=== PATIENT | female | born 1990 | race Caucasian/White ===

== ENCOUNTER 2024-06-25 21:20 | Emergency (ER) | payer BC, SELFPAY ==
[2024-06-25 21:25] VITALS: BP 173/113; PULSE 98; RESP 18; TEMP 36.8; O2SAT 96; BMI 48.1
--- NOTE | 2024-06-25 21:25 | ED_ITS ---
HPI - Abdominal Pain General Date Seen: 06/25/24 Chief Complaint: Abdominal Pain Stated Complaint: RUQ pain Time Seen by Provider: 06/25/24 21:25 History of Present Illness HPI narrative: 34-year-old female with a past medical history including hypertension, elevated BMI, history of V-tach with ablation in 2021, history of eustachian tube dysfunction, anxiety, appendectomy. She also reports a history of a ?enlarged liver? that was noted by her doctors Arash some years ago. It does not sound like it was a serious condition. She is not sure about more detail. I reviewed her old [facility] records. And annual checkup in November 2021 she had mention feeling something enlarged and her right upper quadrant. She went to clinic in December with concern for a bulge in the epigastric reason, possibly an epigastric hernia. A CT scan was ordered by Dr. Huerta, surgery She then had a CT scan which apparently showed mild hepatomegaly. Apparently did not show an epigastric hernia. I am not able to [facility] the [facility] She had follow-up visits in January. CT scan of her abdomen/pelvis on 02/23/2022 FINDINGS: Liver: Liver measures 19.5 cm in length. No masses. No intrahepatic biliary dilatation. ? Gallbladder: No stones or sludge. Normal wall thickness. No pericholecystic fluid. ? Common bile duct: 3 mm. ? Pancreas: Normal in size and appearance. ? Right kidney: Unremarkable. No hydronephrosis. ? Vasculature: Proximal abdominal aorta and IVC are normal in caliber. ? IMPRESSION: No gallstones or evidence of acute abnormality. gallbladder ultrasound on 02/23/2022. IMPRESSION: No gallstones or evidence of acute abnormality. Recent LFTs have been normal in the [facility] system. On 07/27/2023 she had normal labs with a ALT of 14, AST of 19, bilirubin 0.2, albumin low at 3.7, alk-phos normal at 62 Her primary care's to the [facility]. Her [facility] medication list currently includes ; furosemide, propranolol, olmesartan, Pulmicort, hydroxyzine, control pills She has been experiencing some pain and a sensation of fullness in her right upper quadrant of her abdomen ever since late Wednesday evening. She notes that Wednesday evening she when out to [employer] to see a calmly show. She ate some pizza for dinner. No pain with eating. Since the pain began on Wednesday it has been continuous. It has been getting steadily worse over time. It is not really triggered by eating or better with fasting. The pain is located in the mostly in the right upper quadrant but also a little bit into the epigastrium. It does not radiate through to the back. No fever. No vomiting. Bowel movements have been normal. No black or bloody or whitish stools. Urination has been normal. Her last menstrual cycle just ended yesterday. She is not having any pelvic pain. No flank pain. She is concerned because she is worried she might have fluid or something bad leaking from her liver. She came here to the [facility] with her family. Related Data Home Medications ?Medication ?Instructions ?Recorded ?Confirmed furosemide 20 mg tablet 20 mg PO BID 06/25/24 06/25/24 hydroxyzine HCl 25 mg tablet mg PO 06/25/24 norgestimate 0.25 mg-ethinyl 1 tab PO DAILY 06/25/24 06/25/24 estradiol 35 mcg tablet (Estarylla) propranolol 60 mg capsule,24 60 mg PO DAILY 06/25/24 06/25/24 hr,extended release Previous Rx's ?Medication ?Instructions ?Recorded omeprazole 40 mg capsule,delayed 40 mg PO DAILY #30 caps 06/25/24 release Allergies Allergy/AdvReac Type Severity Reaction Status Date / Time No Known Drug Allergies Allergy Verified 06/25/24 21:29 [facility] Medical History (Updated 06/25/24 @ 23:25 by Buddy Kang MD) Morbid obesity ?E66.01 - Morbid (severe) obesity due to excess calories (ICD-10) ETD (eustachian tube dysfunction) ?H69.90 - Unspecified Eustachian tube disorder, unspecified ear (ICD-10) HTN (hypertension) ?I10 - Essential (primary) hypertension (ICD-10) Surgical History (Updated 06/25/24 @ 22:09 by Marin Headley RN) History of myringotomy ?Z98.890 - Other specified postprocedural states (ICD-10) History of nasal septoplasty ?Z98.890 - Other specified postprocedural states (ICD-10) History of wisdom tooth extraction ?K08.409 - Partial loss of teeth, unspecified cause, unspecified class (ICD- 10) History of tympanoplasty ?Z98.890 - Other specified postprocedural states (ICD-10) History of laparoscopic appendectomy ?Z90.49 - Acquired absence of other specified parts of digestive tract (ICD- 10) History of colposcopy ?Z98.890 - Other specified postprocedural states (ICD-10) History of cardiac radiofrequency ablation ?Z98.890 - Other specified postprocedural states (ICD-10) History of bilateral breast reduction surgery ?Z98.890 - Other specified postprocedural states (ICD-10) Social History Smoking Status: Never smoker Second hand tobacco smoke exposure: No How often do you have a drink containing alcohol: never AUDIT-C Alcohol total score: 0 Non-prescribed substance use: denies use Exam Narrative: Exam Narrative: Constitutional: Appears well-developed and well-nourished. Alert. Conversant. Non toxic. HENT: Head: Atraumatic. Nose: Nose normal. Mouth/Throat: Oral mucosa is clear and moist. no trismus. Eyes: Conjunctivae normal. EOM normal. Pupils equal, round, and reactive to light. No scleral icterus. Neck: Normal range of motion. Neck supple. No tracheal deviation present. Cardiovascular: Normal rate, regular rhythm. No gallop. No friction rub. No murmur heard. Pulmonary/Chest: Effort normal. No stridor. No respiratory distress. No wheezes. No rales. No rhonchi . No ribcage tenderness. Abdominal: Soft. Bowel sounds normal. No distension. No mass. Right upper quadrant tenderness. Positive Justice sign. No rebound. No guarding. No right lower quadrant or left-sided tenderness. No CVA tenderness. Musculoskeletal: RUE: Normal range of motion. No tenderness. No deformity LUE: Normal range of motion. No tenderness. No deformity RLE: Normal range of motion. No edema. No tenderness. No deformity LLE: Normal range of motion. No edema. No tenderness. No deformity Neurological: Alert and oriented to person, place, and time. Normal strength. CN II-VII intact. No sensory deficit. GCS eye subscore is 4. GCS verbal subscore is 5. GCS motor subscore is 6. Normal coordination Skin: Skin is warm and dry. No rash noted. No pallor. Normal capillary refill. Psychiatric: Very polite. Initially conversant but bowel were talking she becomes tearful. She is very worried that there is something leaking or fluid around her liver. Her family notes that she searched the Internet before coming in. This triggered her anxiety. She does deal with daily anxiety and is on medications including hydroxyzine for that but she did not take her hydroxyzine today. Const: Vital Signs, click to edit/add: Vital Signs - 24 hr 06/25/24 21:25 06/25/24 21:45 Temperature 98.2 F 98.2 F Pulse Rate [Pulse Oximeter] 98 Respiratory Rate 18 Blood Pressure [Ri ght Upper Arm] 173/113 H Pulse Oximetry 96 Oxygen Delivery Me thod Room Air Course Vital Signs Vital signs: Initial Vital Signs Temperature 98.2 F 06/25/24 21:25 Temperature Source Temporal Artery Scan 06/25/24 21:25 Pulse Rate 98 06/25/24 21:25 Respiratory Rate 18 06/25/24 21:25 Blood Pressure 173/113 H 06/25/24 21:25 Blood Pressure Mean 133 H 06/25/24 21:25 Blood Pressure Position Sitting 06/25/24 21:25 Pulse Oximetry 96 06/25/24 21:25 Oxygen Delivery Method Room Air 06/25/24 21:25 Vital Signs Temperature 98.2 F 06/25/24 21:25 Pulse Rate 98 06/25/24 21:25 Respiratory Rate 18 06/25/24 21:25 Blood Pressure 173/113 H 06/25/24 21:25 Pulse Oximetry 96 06/25/24 21:25 Oxygen Delivery Method Room Air 06/25/24 21:25 Temperature 98.2 F 06/25/24 23:34 Pulse Rate 85 06/25/24 23:34 Respiratory Rate 18 06/25/24 23:34 Blood Pressure 155/85 H 06/25/24 23:34 Pulse Oximetry 96 06/25/24 23:34 Oxygen Delivery Method Room Air 06/25/24 23:34 Medications Administered Medications: Discontinued Medications Generic Name Dose Route Start Last Admin Trade Name Freq PRN Reason Stop Dose Admin Ketorolac Tromethamine 15 mg 06/25/24 21:38 06/25/24 21:45 Ketorolac 15 Mg/Ml Inj IVP 06/25/24 21:39 15 mg ONCE ONE Administration MDM - Abdominal Pain MDM Narrative Medical decision making narrative: Presented to the Emergency Department with a discomfort/bloated feeling affecting the right upper quadrant and a little bit of the right-side of her epigastrium. The differential diagnosis of abdominal pain includes: Cholecystitis, biliary colic, choledocholithiasis, Bowel Obstruction, Ulcer, Ischemia, Cholecystitis, Diverticulitis, Pancreatitis, UTI, kidney stone, Enteritis/Colitis, amongst many other etiologies. She is status post appendectomy. Laboratory testing does not reveal a cause for the patient's pain. Gallbladder ultrasound is noted to be normal, save for mild hepatomegaly which is previously known. The exact etiology of the abdominal pain is not clear at this time. No life threatening cause or need for emergent surgery or hospital admission is detected today. The patient was advised that if symptoms do not completely resolve within another 24 hours re-evaluation with primary care or return to the ED is indicated. We will start her on a PPI in case this might be stomach gas related or gastritis. Patient understands that that is not definitive diagnosis and she needs to monitor carefully. The patient also understands that if they worsen, they should return to the ER right away. I discussed the uncertainty about the diagnosis and answered the patient's questions. Abdominal pain return precautions discussed. Lab Data Labs: Lab Results 06/25/24 06/25/24 Range/Units 21:39 21:48 WBC 11.94 H (4.50-11.00) K/uL RBC 4.71 (4.00-5.20) m/uL Hgb 14.4 (12.0-16.0) gm/dL Hct 42.1 (33.0-51.0) % MCV 89 (80-100) fL MCH 31 (26-34) pg MCHC 34 (32-36) gm/dL RDW Coeff of Umer 13.0 (11.5-15.5) % Plt Count 237 (140-440) K/uL Neut % (Auto) 65.5 (42.0-72.0) % Lymph % (Auto) 22.5 (20-44) % Kern % (Auto) 9.0 (0.0-11.0) % Eos % (Auto) 2.3 (0.0-7.0) % Baso % (Auto) 0.4 (0.0-3.0) % Neut # (Auto) 7.80 H (1.7-7.0) K/uL Lymph # (Auto) 2.70 (0.90-2.90) K/uL Kern # (Auto) 1.10 H (0.00-0.90) K/UL Eos # (Auto) 0.30 (0.00-0.50) K/uL Baso # (Auto) 0.00 (0.00-0.30) K/uL Abs Immat Gran (auto) 0.00 (0.00-0.30) K/uL Imm/Tot Granulo (auto) 0.3 % Sodium 138 (135-149) mmol/L Potassium 4.3 (3.6-5.1) mmol/L Chloride 103 (96-114) mmol/L Carbon Dioxide 29 (20-32) mmol/L Anion Gap 6 L (7-15) mEq/L BUN 15 (5-24) mg/dL Creatinine 0.9 (0.5-1.5) mg/dL Estimated Creat Clear 74.62 Estimated GFR 85 ml/min Glucose 101 (60-115) mg/dL Calcium 9.2 (8.4-10.6) mg/dL Total Bilirubin 0.4 (0.1-1.5) mg/dL AST 19 (12-35) U/L ALT 22 (4-35) U/L Alkaline Phosphatase 81 (40-150) U/L Total Protein 7.0 (6.0-8.3) g/dL Albumin 4.1 (3.3-5.0) g/dL Lipase 50 (23-300) U/L Urine Color Yellow (Yellow) Urine Appearance Clear (Clear) Urine pH 7.0 (5.0-8.5) Ur Specific Nixon 1.020 (1.000-1.030) Urine Protein Trace A (Negative) Urine Glucose (UA) Negative (Negative) Urine Ketones Negative (Negative) Urine Blood 3+ A (Negative) Urine Nitrite Negative (Negative) Urine Bilirubin Negative (Negative) Urine Urobilinogen 0.2 (0.2-1.0) Ur Leukocyte Esterase 1+ A (Negative) Urine RBC 10-25 A (0-2) Urine WBC 10-25 A (0-5) Ur Squamous Epith Cells Many A (None-Few) Urine Bacteria Few A (None) Urine HCG, Qual Negative (Negative) Discharge Plan Discharge Clinical Impression: Abdominal pain Patient Disposition: Home, Self-Care Condition: Stable Instructions: Abdominal Pain (ED) Additional Instructions: As we discussed, the cause for your pain is not clear based on your workup so far. Your pain might be related to a stomach problem like acid roman on the inner lining of her stomach. Will start you on a medicine to help reduce stomach acid. This might help you feel better over the next few days. However I when she to monitor your symptoms carefully and if you have any worsening pain, vomiting, fever, bloody or black stools, or any other problems, return to the ER right away or see your doctor right away to be rechecked. If you are not substantially improved within 24 hours, please recheck with the ER with your regular doctor. Prescriptions: New omeprazole 40 mg capsule,delayed release(DR/EC) 40 mg PO DAILY Qty: 30 2RF No Action norgestimate-ethinyl estradiol [Estarylla] 0.25-35 mg-mcg tablet 1 tab PO DAILY propranolol 60 mg capsule,extended release 24 hr 60 mg PO DAILY hydroxyzine HCl 25 mg tablet PO furosemide 20 mg tablet 20 mg PO BID Follow Up/Referrals: Lawanda Villa PA-C [Primary Care Provider] - Stand Alone Forms: [employer] Info Instructions
--- NOTE | 2024-06-25 21:38 | CRLHL7_ITS ---
For Patients: As a result of the Cures Act, medical imaging exams and procedure reports are released immediately into your electronic medical record. You may view this report before your referring provider. If you have questions, please contact your health care provider. INDICATION: Right upper quadrant abdominal pain TECHNIQUE: Ultrasound abdomen limited. Sonographic images of the right upper quadrant were obtained using peralta-scale and color Doppler images. COMPARISON: None FINDINGS: The sensitivity and specificity of the exam are moderately limited by the patient`s body habitus. Liver: Mild hepatomegaly is present with the liver measuring 19 cm in craniocaudal length. Visualization of the liver parenchyma is limited by body habitus and acoustic shadowing. Gallbladder: No gallstones or sludge seen in the lumen. The gallbladder wall is normal in appearance. No pericholecystic fluid is present. No sonographic Justice???s sign is present. Common bile duct: 5 mm. No intrahepatic biliary ductal dilatation seen. Pancreas: The visualized portions of the pancreatic head and body are normal in appearance. Right Kidney: 10.5 cm. No hydronephrosis or ureterectasis is seen. Vascular: The visualized abdominal aorta and IVC are unremarkable. The visualized portal vein is patent with normal anterograde flow. IMPRESSION: 1. Mild hepatomegaly is present with the liver measuring 19 cm in craniocaudal length. Dictated by Rahul Dickerson MD @ 06/25/2024 10:48:51 PM Dictated by: Rahul Dickerson MD @ 06/25/2024 22:48:55 (Electronically Signed)
[2024-06-25 21:45] VITALS: TEMP 36.8
[2024-06-25] MEDS: KETOROLAC 15 MG/ML inj IVP (21:45)
[2024-06-25 21:52] LABS: Basophils Percent Auto 0.4 % (0.0-3.0); Eosinophils Percent Auto 2.3 % (0.0-7.0); Hematocrit 42.1 % (33.0-51.0); Hemoglobin* 14.4 gm/dL (12.0-16.0); Immature Granulocytes Pct Auto 0.3 %; Lymphocytes Percent Auto 22.5 % (20-44); Mean Corpuscular HGB Conc 34 gm/dL (32-36); Mean Corpuscular Hemoglobin 31 pg (26-34); Mean Corpuscular Volume 89 fL (80-100); Neutrophils Percent Auto 65.5 % (42.0-72.0); Platelet Count* 237 K/uL (140-440); Red Blood Count 4.71 m/uL (4.00-5.20); White Blood Count* 11.94 K/uL (4.50-11.00)
[2024-06-25 21:53] LABS: Slide Review Reflex No
[2024-06-25 21:57] LABS: Appearance Urine Clear (Clear); Bilirubin Urine Negative (Negative); Blood Urine 3+ (Negative); Color Urine Yellow (Yellow); Glucose Urine Negative (Negative); Ketones Urine Negative (Negative); Leukocyte Esterase Urine 1+ (Negative); Nitrite Urine Negative (Negative); Protein Urine Trace (Negative); Urobilinogen Urine 0.2 (0.2-1.0)
[2024-06-25 21:58] LABS: Ur HCG Qualitative* Negative (Negative)
[2024-06-25 22:03] LABS: Bacteria Urine Few; Squamous Epithelial Cell Urine Many (None-Few)
[2024-06-25 22:04] LABS: Albumin* 4.1 g/dL (3.3-5.0)
[2024-06-25 22:05] LABS: Chloride* 103 mmol/L (96-114); Potassium* 4.3 mmol/L (3.6-5.1); Sodium* 138 mmol/L (135-149)
[2024-06-25 22:07] LABS: Anion Gap 6 mEq/L (7-15); Aspartate Amino Transferase* 19 U/L (12-35); Bilirubin Total* 0.4 mg/dL (0.1-1.5); Carbon Dioxide* 29 mmol/L (20-32); Creatinine* 0.9 mg/dL (0.5-1.5); Est. Creatinine Clearance* 74.62; Estimated Glomerular Filt Rate 85 ml/min
[2024-06-25 22:08] LABS: Alanine Aminotransferase* 22 U/L (4-35); Alkaline Phosphatase* 81 U/L (40-150); Blood Urea Nitrogen* 15 mg/dL (5-24); Calcium* 9.2 mg/dL (8.4-10.6); Glucose* 101 mg/dL (60-115); Lipase* 50 U/L (23-300)
[2024-06-25 23:34] VITALS: BP 155/85; PULSE 85; RESP 18; TEMP 36.8; O2SAT 96
== END 2024-06-25 23:35 | disposition home or self-care (01) ==
PROVIDERS: Emergency Provider Emergency Medicine; PCP Physician Assistant Medical
DX: R10.9 Unspecified abdominal pain (principal)
CPT/HCPCS: 36415; 76705; 80053; 81001; 81025; 83690; 85025; 87086; 96374; 99283; 99284; J1885